=== PATIENT | female | born 1945 | race Caucasian/White ===

== ENCOUNTER 2018-07-15 07:16 | Day surgery (SDC) | payer OTHER, BC ==
[2018-07-15] MEDS ORDERED: PHENYLEPHRINE 2.5% OPHTH SOLN 15 ML BOTTLE ONE (07:48)
[2018-07-15] MEDS ORDERED: GENTAMICIN SULFATE 0.3% OPHTHALMIC (EYE DROPS) 5ML BOTTLE ONE (07:48)
[2018-07-15] MEDS: GENTAMICIN SULFATE 0.3% OPHTHALMIC (EYE DROPS) 5ML BOTTLE OD SCH ×5 (08:15→08:35)
[2018-07-15] MEDS: TROPICAMIDE 1% OPHTH SOLN 15 ML BOTTLE ONE ×2 (08:15→08:35)
[2018-07-15] MEDS: PHENYLEPHRINE 2.5% OPHTH SOLN 15 ML BOTTLE OD SCH ×4 (08:15→08:30)
[2018-07-15] MEDS: CYCLOPENTOLATE HCL 1% OPHTH SOLN 2 ML BOTTLE OD SCH ×5 (08:15→08:35)
[2018-07-15] MEDS: KETOROLAC TROMETHAMINE 0.5% EYE DROP 1 DROP DROPS OD SCH ×5 (08:15→08:35)
[2018-07-15 08:20] VITALS: BMI 25.7
[2018-07-15] MEDS: TROPICAMIDE 1% OPHTH SOLN 15 ML BOTTLE OD SCH ×3 (08:20→08:30)
[2018-07-15] MEDS ORDERED: EPI-SHUGARCAINE (EPINEPHRINE 0.025% & LIDOCAINE-PF 0.75%) 4ML ONE (09:19)
[2018-07-15] MEDS ORDERED: TETRACAINE 0.5% OPHTH SOLN 2 ML BOTTLE ONE (09:19)
[2018-07-15] MEDS ORDERED: POVIDONE-IODINE 5% OPHTHALMIC PREP 30 ML SOLUTION ONE (09:19)
[2018-07-15] MEDS ORDERED: ACETYLCHOLINE 1:100 INTRA-OCUL 20 MG/2 ML KIT ONE (09:19)
[2018-07-15] MEDS ORDERED: MIDAZOLAM HCL 2 MG/2 ML SINGLE DOSE VIAL ONE ×2 (09:34→10:12)
[2018-07-15] MEDS ORDERED: ACETAMINOPHEN 325 MG TABLET (FP) PO PRN (11:02)
[2018-07-15 11:25] VITALS: TEMP 97.6
--- NOTE | 2018-07-15 11:46 | OP ---
DATE OF OPERATION: 07/15/2018 PREOPERATIVE DIAGNOSIS: Cataract, right eye, astigmatism. POSTOPERATIVE DIAGNOSIS: Cataract, right eye, astigmatism. PROCEDURES: Cataract extraction via phacoemulsification with insertion of posterior chamber lens implant, right eye, toric. SURGEON: Korey Goncalves MD CFO CONTROLLER: Sandie Banuelos MD ANESTHESIA: Topical with sedation. ESTIMATED BLOOD LOSS: Less than 1 mL. COMPLICATIONS: None. SPECIMENS: None. PROCEDURE: The patient was identified in the holding area. After all risks, benefits and alternatives were explained to the patient, informed consent was obtained. The right eye was marked with a marking pen. The patient then entered the operating room on an eye stretcher. After a formal timeout was performed, topical tetracaine eye drops were instilled onto the right eye. The right eye was marked for the toric lens. Patient was asked to sit up and look straight ahead, and using a toric bubble marker, the cardinal axes of astigmatism were marked onto the cornea. The right eye was then prepped and draped in the usual sterile fashion. An eyelid speculum was placed beneath the eyelids of the right eye. Then, before any incisions were made in the eye, the axis of astigmatism was marked on the cornea using a toric marking pen and a toric marker with a toric dial. The axis was noted to be 10 degrees. Then, the supratemporal paracentesis incision was created using a 15-degree blade. First, topical preservative-free epinephrine and preservative-free lidocaine were then injected into the anterior chamber. Viscoelastic was then injected into the anterior chamber. A 2.4-mm keratome blade was then used to make an infratemporal incision. A 360-degree continuous curvilinear capsulorhexis was then created using a bent cystitome and Utrata forceps. Hydrodissection was performed using balanced saline solution on a cannula. Phacoemulsification was introduced to dissemble and remove the nucleus in its entirety. Irrigation/aspiration was then used to remove any remaining cortical material from the eye. The capsular bag was reformed using viscoelastic. An Fabián model [id number] with a power of 21.0 diopters serial number [id number] was inspected, and found to be defect-free, and injected into the capsular bag. Irrigation/aspiration was then used to remove any remaining viscoelastic from the eye including posterior to the optic. Then, the toric lens was dialed into place with the axis of astigmatism on the optic matching 10-degree axis on the cornea. Once the lens was perfectly centered and had the perfect axis, then intracameral injections of Miochol and Miostat were then administered and the pupil came down and was round. All wounds were hydrated with balanced saline solution and noted to be watertight. There was a red reflex present, the anterior chamber was deep, the lens was perfectly centered in the capsular bag. Topical antibiotic eye drops and ointment were then administered to the eye. The eyelid speculum was removed from the right eye. The right eye was shielded. The patient tolerated the procedure well, and left the operating room in stable condition, to follow up in the [facility] tomorrow morning at 10:00. KOREY GONCALVES M.D. [id number]
[2018-07-15 13:05] VITALS: BP 106/63; PULSE 70
== END 2018-07-15 11:55 | disposition home or self-care (01) ==
LOC: FASU 07:16
PROVIDERS: ATTEND Ophthalmology
PROC: 08RJ3JZ Replacement of Right Lens with Synthetic Substitute, Percutaneous Approach (ICD-10-PCS; principal; 2018-07-15 10:15)
DX: H26.9 Unspecified cataract (principal); H52.201 Unspecified astigmatism, right eye

== ENCOUNTER 2020-04-19 07:26 | Day surgery (SDC) | payer OTHER, BC ==
[2020-04-18 13:14] VITALS: BMI 25.7
[2020-04-19] MEDS ORDERED: TROPICAMIDE 1% OPHTH SOLN 15 ML BOTTLE ONE (07:39)
[2020-04-19] MEDS ORDERED: PHENYLEPHRINE 2.5% OPHTH SOLN 15 ML BOTTLE ONE (07:39)
[2020-04-19] MEDS ORDERED: KETOROLAC TROMETHAMINE 0.5% EYE DROP 1 DROP DROPS ONE (07:39)
[2020-04-19] MEDS ORDERED: OFLOXACIN 0.3% OPHTHALMIC SOLUTION 5 ML BOTTLE ONE (07:39)
[2020-04-19] MEDS ORDERED: CYCLOPENTOLATE HCL 1% OPHTH SOLN 2 ML BOTTLE ONE (07:39)
[2020-04-19] MEDS: PHENYLEPHRINE 2.5% OPHTH SOLN 15 ML BOTTLE OS SCH ×5 (07:55→08:15)
[2020-04-19] MEDS: OFLOXACIN 0.3% OPHTHALMIC SOLUTION 5 ML BOTTLE OS SCH ×5 (07:55→08:15)
[2020-04-19] MEDS: CYCLOPENTOLATE HCL 1% OPHTH SOLN 2 ML BOTTLE OS SCH ×5 (07:55→08:15)
[2020-04-19] MEDS: KETOROLAC TROMETHAMINE 0.5% EYE DROP 1 DROP DROPS OS SCH ×5 (07:55→08:15)
[2020-04-19] MEDS: TROPICAMIDE 1% OPHTH SOLN 15 ML BOTTLE OS SCH ×5 (07:55→08:15)
[2020-04-19 08:00] VITALS: TEMP 97.7
[2020-04-19] MEDS ORDERED: BACITRACIN/POLYMYXIN OPH OINT 3.5 GM TUBE ONE (08:01)
[2020-04-19] MEDS ORDERED: EPI-SHUGARCAINE (EPINEPHRINE 0.025% & LIDOCAINE-PF 0.75%) 4ML ONE (08:02)
[2020-04-19] MEDS ORDERED: TETRACAINE 0.5% OPHTH SOLN 2 ML BOTTLE ONE (08:02)
[2020-04-19] MEDS ORDERED: NEO/POLYMYX B SULF/DEXAMETH OPHTHALMIC 5ML BOTTLE ONE (08:02)
[2020-04-19] MEDS ORDERED: POVIDONE-IODINE 5% OPHTHALMIC PREP 30 ML SOLUTION ONE (08:02)
[2020-04-19] MEDS ORDERED: BETAXOLOL HCL 0.25% OPHTHALMIC 10 ML DROPSBTL ONE (08:02)
[2020-04-19] MEDS ORDERED: MIDAZOLAM HCL 2 MG/2 ML SINGLE DOSE VIAL ONE (09:36)
[2020-04-19] MEDS ORDERED: ACETAMINOPHEN 325 MG TABLET (FP) PO PRN (10:21)
[2020-04-19 10:59] VITALS: BP 112/61; PULSE 63
== END 2020-04-19 11:00 | disposition home or self-care (01) ==
LOC: FASU 07:26
PROVIDERS: ATTEND Ophthalmology
PROC: 08RK3JZ Replacement of Left Lens with Synthetic Substitute, Percutaneous Approach (ICD-10-PCS; principal; 2020-04-19 09:53)
DX: H26.9 Unspecified cataract (principal)

== ENCOUNTER 2023-05-09 20:07 | Emergency (ER) | payer OTHER, BC ==
[2023-05-09 20:15] VITALS: BP 130/69; PULSE 89; RESP 18; TEMP 97.5; BMI 25.7
[2023-05-09 20:47] LABS: HEMATOCRIT 44.1 % (32.4-45.2); MCH 31.9 pg (25.7-33.7); MCHC 34.1 g/dl (32.0-36.0); MEAN CELL VOLUME 93.7 fl (80-96); MEAN PLT VOLUME 7.3 fl (7.5-11.1); PLATELET COUNT 313.3 10^3/uL (134-434); RBC 4.71 10^6/uL (3.60-5.2); RDW 13.9 % (11.6-15.6); WHITE BLOOD COUNT 12.6 10^3/uL (4.0-10.8)
[2023-05-09 20:59] LABS: PLATELET ESTIMATE ADEQUATE
[2023-05-09 21:17] LABS: ALBUMIN 4.4 g/dl (3.4-5.0); BILIRUBIN,TOTAL 0.4 mg/dl (0.2-1); CALCIUM 9.7 mg/dl (8.5-10.1); CREATININE 0.8 mg/dl (0.6-1.3); POTASSIUM 4.7 mmol/L (3.5-5.1); TOT PROT 7.5 g/dl (6.4-8.2)
[2023-05-09] MEDS ORDERED: ACETAMINOPHEN 500 MG TABLET (FP) ONE (21:59)
[2023-05-09] MEDS ORDERED: LIDO 2%/EPI 1:200000 PRESRVFRE (20 ML SDVIAL) ONE (22:02)
[2023-05-09] MEDS: ACETAMINOPHEN 500 MG TABLET (FP) PO ONE (22:06)
[2023-05-09] MEDS ORDERED: DIPHTH,PERTUSS(ACELL),TET 0.5 ML DISP.SYRIN IM ONE (22:42)
[2023-05-09] MEDS ORDERED: AMOX TR/POT CLAV 875MG/125MG TABLETS (FP) ONE (22:42)
[2023-05-09] MEDS: DIPHTH,PERTUSS(ACELL),TET 0.5 ML DISP.SYRIN IM ONE (22:47)
[2023-05-09] MEDS: AMOX TR/POT CLAV 875MG/125MG TABLETS (FP) PO ONE (22:48)
== END 2023-05-09 22:52 | disposition home or self-care (01) ==
LOC: FER 20:07
PROC: 3E0234Z Introduction of Serum, Toxoid and Vaccine into Muscle, Percutaneous Approach (ICD-10-PCS; principal; 2023-05-09)
DX: R42 Dizziness and giddiness (principal); R55 Syncope and collapse; S16.1XXA Strain of muscle, fascia and tendon at neck level, initial encounter; S01.81XA Laceration without foreign body of other part of head, initial encounter; S01.511A Laceration without foreign body of lip, initial encounter; W18.39XA Other fall on same level, initial encounter
CPT/HCPCS: 36415; 70450-TC; 71045-TC-FY; 72050-TC-FY; 80053; 84484; 85027; 90471; 90715; 93005; 96372; 99285-25